=== PATIENT | male | born 1980 | race Caucasian/White ===

== ENCOUNTER 2021-03-18 13:28 | Emergency (ER) | payer OTHER ==
[~2021-03-18] VITALS: Ht 188 cm; Wt 86.2 kg
[2021-03-18] MEDS ORDERED: XANAX2 MG PO (13:42)
[2021-03-18] MEDS ORDERED: DESYREL150 MG PO (13:42)
[2021-03-18] MEDS ORDERED: TESSALON PERLE100 MG PO (13:44)
[2021-03-18 14:44] LABS: HEMATOCRIT 45.4 % (42.0-52.0); HEMOGLOBIN 15.3 gm/dL (14.0-18.0); MCH 27.9 pg (26.0-34.0); MCHC 33.8 g/dL (28.0-37.0); MCV 82.6 fL (80.0-100.0); MPV 8.1 fl. (7.2-11.1); RBC 5.5 mil/uL (4.50-6.00); RDW-CV 13.9 % (10.5-14.5); WBC 14.3 thou/uL (4.0-11.0)
[2021-03-18 14:48] LABS: CALCIUM 9.2 mg/dL (8.5-10.1); CREATININE 1.2 mg/dL (0.6-1.3); POTASSIUM 4.1 mmol/L (3.5-5.1)
--- NOTE | 2021-03-18 15:35 | EKG ---
[place] [address] ELECTROCARDIOGRAM REPORT Name: GALLOWAYSAÚL Room: [facility]#: [id number] Admission: 03/18/21 Attend Phys: Discharge: Date of : 82 Date of Service: 03/18/21 1455 Report #: [id number] THIS REPORT FOR: //name// [facility] ED Test Date: 2021-03-18 Test Time: 14:55:22 Pat Name: SAÚL GALLOWAY Department: Room: Gender: [employer]: ELLY : 1980 Requested By: Naveed Grider Order Number: [id number] MD: Shashank Davis Measurements Intervals [place] Rate: 91 P: 14 LA: 171 QRS: 52 QRSD: 103 T: 57 QT: 348 QTc: 429 Interpretive Statements Sinus rhythm No previous ECG available for comparison Electronically Signed On 03-18-2021 15:35:43 TOMOGRAPHIC TECH by Shashank Davis [email or web address] <ELECTRONICALLY SIGNED> By: Shashank Davis MD, [facility] 03/18/21 1535 1455 1455 Shashank Davis MD, FACC /EPI
[2021-03-18] MEDS ORDERED: VISTARIL 25 MG25 M1 PO (16:14)
[2021-03-18 16:35] VITALS: BP 100/58
== END 2021-03-18 16:38 | disposition home or self-care (01) ==
LOC: M.ERS 13:28
PROVIDERS: Physician Assistant
DX: F41.9 Anxiety disorder, unspecified (principal); R06.00 Dyspnea, unspecified; Z88.5 Allergy status to narcotic agent; Z79.899 Other long term (current) drug therapy